=== PATIENT | female | born 1975 | race Caucasian/White ===

== ENCOUNTER 2025-02-10 20:39 | Inpatient (IN) ==
[2025-02-10] MEDS: HEPARIN SOD,PORK IN 0.45% NACL 25,000 UNIT in PREMIX 1 BAG IV SCH (21:46)
[2025-02-10] MEDS: HEPARIN 5,000 UNIT/ML VIAL IV ONE (21:48)
[2025-02-10 21:51] LABS: INR 0.9 (0.9-1.1); Partial Thromboplastin Time 31.7 sec (20.0-37.0); Prothrombin Time 13.0 sec (11.9-14.5)
[2025-02-10] MEDS: HEPARIN SOD,PORK IN 0.45% NACL 500 ML IV ONE (21:52)
[2025-02-10] MEDS ORDERED: KETOROLAC 30 MG/ML VIAL IV PRN (22:50)
[2025-02-10] MEDS ORDERED: IPRATROPIUM/ALBUTEROL 3 ML AMPUL.NEB NEB PRN (22:50)
[2025-02-11] MEDS: 0.9 % SODIUM CHLORIDE 10 ML SYRINGE IV SCH (01:23)
[2025-02-11 04:17] LABS: Basophils # (Auto) 0.01 K/mcL (0.00-0.30); Basophils % (Auto) 0.2 % (0.0-2.0); Eosinophils # (Auto) 0.14 K/mcL (0.00-0.70); Eosinophils % (Auto) 2.8 % (0.0-7.0); Hematocrit 37.8 % (34.1-44.9); Hemoglobin 12.3 g/dL (11.2-15.7); Lymphocytes # (Auto) 2.80 K/mcL (1.50-4.80); Lymphocytes % (Auto) 55.7 % (15.5-49.0); Mean Corpuscular HGB Conc 32.5 g/dL (31.0-36.0); Monocytes # (Auto) 0.36 K/mcL (0.10-0.90); Monocytes % (Auto) 7.2 % (1.0-12.0); Neutrophils % (Auto) 34.1 % (38.0-78.0); Platelet Count 204 K/mcL (140-440); RBC 3.94 M/mcL (3.59-5.38); WBC 5.0 K/mcL (4.5-11.0)
[2025-02-11 04:37] LABS: Anion Gap 10.0 (8.0-16.0); Blood Urea Nitrogen 8 mg/dL (6-20); Calcium 8.7 mg/dL (8.6-10.4); Carbon Dioxide 25 mmol/L (22-30); Chloride 101 mmol/L (96-108); Glucose 112 mg/dL (70-105); Potassium 3.7 mmol/L (3.3-5.1); Sodium 136 mmol/L (133-145)
[2025-02-11] MEDS: ACETAMINOPHEN 325 MG TABLET PO PRN (07:33)
[2025-02-11] MEDS: DOCUSATE SODIUM 100 MG CAPSULE PO SCH (09:56)
[2025-02-11] MEDS: AMOXICILLIN/POTASSIUM CLAV 875 MG TABLET PO SCH (09:56)
[2025-02-11] MEDS ORDERED: BENZONATATE 100 MG CAPSULE PO PRN (10:38)
[2025-02-11] MEDS ORDERED: ALBUTEROL SULFATE 60 PUFF INHALER INH PRN (10:38)
[2025-02-11] MEDS ORDERED: AMOXICILLIN/POTASSIUM CLAV 875 MG TABLET PO SCH (10:45)
[2025-02-11] MEDS: LIDOCAINE 4% TOP PATCH TOPICAL SCH (12:11)
[2025-02-11] MEDS: METHOCARBAMOL 500 MG TABLET PO SCH (14:28)
[2025-02-11] MEDS: ONDANSETRON 4 MG/2 ML VIAL IV PRN (19:51)
[2025-02-11] MEDS: SENNOSIDES 1 TABLET PO SCH (22:04)
[2025-02-11] MEDS: AMITRIPTYLINE 25 MG TABLET PO SCH (22:06)
[2025-02-11] MEDS: HEPARIN SOD,PORK IN 0.45% NACL 500 ML IV ONE (22:09)
[2025-02-12 04:18] LABS: Basophils # (Auto) 0.01 K/mcL (0.00-0.30); Basophils % (Auto) 0.2 % (0.0-2.0); Eosinophils # (Auto) 0.17 K/mcL (0.00-0.70); Eosinophils % (Auto) 4.2 % (0.0-7.0); Hematocrit 34.9 % (34.1-44.9); Hemoglobin 11.5 g/dL (11.2-15.7); Lymphocytes # (Auto) 2.37 K/mcL (1.50-4.80); Lymphocytes % (Auto) 58.2 % (15.5-49.0); Mean Corpuscular HGB Conc 33.0 g/dL (31.0-36.0); Monocytes # (Auto) 0.27 K/mcL (0.10-0.90); Monocytes % (Auto) 6.6 % (1.0-12.0); Neutrophils % (Auto) 30.8 % (38.0-78.0); Platelet Count 202 K/mcL (140-440); RBC 3.67 M/mcL (3.59-5.38); WBC 4.1 K/mcL (4.5-11.0)
[2025-02-12 04:38] LABS: Anion Gap 8.0 (8.0-16.0); Blood Urea Nitrogen 9 mg/dL (6-20); Calcium 8.6 mg/dL (8.6-10.4); Carbon Dioxide 26 mmol/L (22-30); Chloride 103 mmol/L (96-108); Glucose 98 mg/dL (70-105); Potassium 3.9 mmol/L (3.3-5.1); Sodium 137 mmol/L (133-145)
[2025-02-12 10:25] VITALS: O2SAT 97
[2025-02-12 12:04] VITALS: TEMP 98.3
== END 2025-02-12 13:03 | disposition home or self-care (01) | DRG 175 ==
LOC: ED 20:39 → MEDSUR 22:48
PROVIDERS: ADMIT Internal Medicine; ATTEND Internal Medicine